=== PATIENT | female | born 1965 | race Caucasian/White ===

== ENCOUNTER → 2022-09-03 | Outpatient (CLI) | payer BC ==
[~2022-09-03] MED LIST: AMIT25TA2 OR; CALCCHW12 OR; CARI350T OR; CELE40TA OR; LYRI150C OR; MULTIVIT PO; REFRESH OU; TRAZ50TA OR; ZANA2CAP OR; [UNRECOGNIZED DRUG - OTHER] OU; amrix; celexa PO; pennsaid PO; soma PO; trazadone PO
== END ==
LOC: M RAD 12:38
PROVIDERS: ATTEND Physician Assistant Medical
DX: N18.9 Chronic kidney disease, unspecified (principal)

== ENCOUNTER → 2024-07-05 | Outpatient (REF) | payer BC ==
[2024-07-05 14:05] LABS: BLOOD UREA NITROGEN 15 MG/DL (9-23); CREATININE FOR GFR 0.97 MG/DL (0.55-1.30); GLOMERULAR FILTRATION RATE > 60.0 (>51)
== END ==
LOC: M LABDRWAD 12:59
PROVIDERS: ATTEND Physician Assistant
DX: E11.3293 Type 2 diabetes mellitus with mild nonproliferative diabetic retinopathy without macular edema, bilateral (principal); H47.021 Hemorrhage in optic nerve sheath, right eye; H16.223 Keratoconjunctivitis sicca, not specified as Sjogren's, bilateral; H10.011 Acute follicular conjunctivitis, right eye; H53.461 Homonymous bilateral field defects, right side; H53.462 Homonymous bilateral field defects, left side

== ENCOUNTER → 2024-07-25 | Outpatient (CLI) | payer BC ==
[~2024-07-25] MED LIST changes: +PROHANCE 279.3MG/ML 15ML VIAL ONE
== END ==
LOC: M PLAIMG 08:51
PROVIDERS: ATTEND Physician Assistant
DX: H53.47 Heteronymous bilateral field defects (principal)
CPT/HCPCS: 70543; 70553; A9576

== ENCOUNTER → 2025-04-10 | Outpatient (REF) | payer BC ==
[~2025-04-10] MED LIST changes: -PROHANCE 279.3MG/ML 15ML VIAL ONE
== END ==
LOC: M LAB REF 16:35
PROVIDERS: ATTEND Surgery
DX: L72.0 Epidermal cyst (principal)

== ENCOUNTER → 2025-08-15 | Outpatient (REF) | payer OTHER | LOC: M SFHCDERM 13:15 | PROVIDERS: ATTEND Nurse Practitioner Family | DX: D49.2 Neoplasm of unspecified behavior of bone, soft tissue, and skin (principal) ==